=== PATIENT | male | born 1955 | race Two or more races ===

== ENCOUNTER 2024-03-26 07:58 | Day surgery (SDC) | payer OTHER ==
[2024-03-12 17:19] LABS: COL EPI 122 SECONDS (82-175)
[~2024-03-26 07:58] MED LIST: CLARITIN10 M1 PO; HYDROCHLOROTHIA25 MG PO; LOTREL 5-20 MG1 CAP PO; LYRICA100 MG PO; PROTONIX40 MG PO
[2024-03-26] MEDS ORDERED: DIBUCAINE 30 GM TUBE ONE (14:18)
[2024-03-26] MEDS ORDERED: POVIDONE-IODINE 118 ML BOTT TOP ONE ×2 (14:19→14:52)
[2024-03-26] MEDS ORDERED: HEMOSTATIC MATRIX 1 KIT KIT TOP ONE (14:19)
[2024-03-26] MEDS ORDERED: METRONIDAZOLE/SODIUM CHLORIDE 500 MG/100 ML PIGGYBACK IV ONE (14:26)
[2024-03-26] MEDS ORDERED: TAMSULOSIN HCL 0.4 MG CAP PO ONE ×2 (15:30→17:22)
[2024-03-26] MEDS ORDERED: PERCOCET 5-3251 EACH PO (17:13)
[2024-03-26] MEDS ORDERED: TAMS0.4C PO (17:14)
[2024-03-26] MEDS ORDERED: RECTICARE30 GM TOP (17:14)
== END 2024-03-26 22:50 | disposition home or self-care (01) ==
LOC: CIR.AMB 07:58
PROVIDERS: ATTEND Surgery
DX: K64.1 Second degree hemorrhoids (principal); K64.5 Perianal venous thrombosis; I10 Essential (primary) hypertension; K21.9 Gastro-esophageal reflux disease without esophagitis; K44.9 Diaphragmatic hernia without obstruction or gangrene; Z88.0 Allergy status to penicillin; Z88.1 Allergy status to other antibiotic agents

== ENCOUNTER 2024-03-30 15:50 | Emergency (ER) | payer OTHER ==
[~2024-03-30] VITALS: Ht 167.6 cm; Wt 80.7 kg
[~2024-03-30 15:50] MED LIST changes: +PERCOCET 5-3251 EACH PO; +RECTICARE30 GM TOP; +TAMS0.4C PO
[2024-03-30] MEDS ORDERED: CHLORTHALIDONE25 MG PO (16:01)
[2024-03-30] MEDS ORDERED: LOTREL 5-10 MG1 CAP PO (16:01)
[2024-03-30 17:17] LABS: HEMOGLOBIN 15.9 g/dL (13-16.00); MEAN CELL VOLUME 90.8 fL (80.0-100.00); MEAN CORPUSCULAR HEMOGLOBIN 31.5 pg (27.00-32.0); MEAN CORPUSCULAR HGB CONC 34.7 g/dl (32.0-36.0); PLATELET COUNT 134 K/uL (150-450); RED BLOOD COUNT 5.07 M/uL (4.00-6.00); RED CELL DISTRIBUTION WIDTH 13.1 % (11.5-14.5)
[2024-03-30 17:47] LABS: ALBUMIN 3.9 gm/dL (3.4-5.0); BILIRUBIN TOTAL 0.67 mg/dL (0.3-1.2); CALCIUM 9.6 mg/dL (8.5-10.1); CREATININE SERUM 1.55 mg/dL (0.70-1.30); GFR 44.81; GLOBULINA 3.8 G/DL (2.4-3.5); POTASSIUM 3.97 mEq/L (3.5-5.1); TOTAL PROTEIN 7.7 gm/dL (6.4-8.2)
[2024-03-30 17:54] LABS: PH,URINE 5.5 (5.0-8.0); URINE APPEARANCE Clear; URINE BILIRRUBIN Negative (NEGATIVE); URINE BLOOD Small; URINE COLOR Yellow; URINE GLUCOSE Negative (NEGATIVE); URINE KETONE Negative (NEGATIVE); URINE LEUKOCYTE Negative; URINE NITRATE Negative; URINE PROTEIN Negative (NEGATIVE); URINE UROBILINOGEN 0.2 E.U./dl
[2024-03-30 17:57] LABS: URINE EPITHELIAL CELLS 1.6 uL (0.0-38.8); URINE RBC 4.5 uL (0.0-20.8)
[2024-03-30] MEDS ORDERED: KETOROLAC TROMETHAMINE 30 MG VIAL ONE (18:00)
[2024-03-30] MEDS ORDERED: KETOROLAC TROMETHAMINE 30 MG VIAL IV ONE (18:00)
[2024-03-30] MEDS ORDERED: CIPRO500 MG PO (19:02)
[2024-03-30] MEDS ORDERED: TAMS0.4C PO (19:02)
== END 2024-03-30 19:06 | disposition home or self-care (01) ==
LOC: ER 15:52
PROVIDERS: General Practice
DX: R33.9 Retention of urine, unspecified (principal); K64.2 Third degree hemorrhoids; I10 Essential (primary) hypertension; Z88.0 Allergy status to penicillin
CPT/HCPCS: 36415; 51702; 96365; 99282; J1885